=== PATIENT | female | born 2000 | race Caucasian/White ===

== ENCOUNTER 2022-05-29 02:25 | Emergency (ER) | payer BC, OTHER ==
[2022-05-29] MEDS ORDERED: Famotidine 20 MG/2 ML SDV IVPUSH ONE (02:49)
[2022-05-29] MEDS ORDERED: methylPREDNISolone Sodium Succinate 125 MG/2 ML SDV IVPUSH ONE (02:49)
[2022-05-29] MEDS ORDERED: Famotidine 20 MG/2 ML SDV ONE (04:23)
== END 2022-05-29 07:00 | disposition home or self-care (01) ==
LOC: JD.ED 02:25
DX: R10.9 Unspecified abdominal pain (principal); L50.9 Urticaria, unspecified; Z79.899 Other long term (current) drug therapy
CPT/HCPCS: 36415; 80053; 81001; 81025; 83690; 85025; 87086; 96374; 96375; 99284; J2930; J3490